=== PATIENT | female | born 1950 | race Asian ===

== ENCOUNTER 2019-01-13 22:36 | Emergency (ER) | payer MEDICARE ==
[~2019-01-13] VITALS: Ht 152.4 cm; Wt 54.4 kg
[2019-01-14] MEDS ORDERED: LIDOCAINE W/ EPINEPHRINE 2% INJ 20ML VIAL ONE (01:37)
[2019-01-14] MEDS ORDERED: HYDROcodone-ACET 10/325MG TAB PO ONE (01:45)
[2019-01-14] MEDS ORDERED: TETANUS-DIPTH-ACEL PERTUSSIS 0.5ML SYRG IM ONE (01:45)
[2019-01-14] MEDS ORDERED: IBUPROFEN 600 MG TAB PO ONE (01:45)
[2019-01-14] MEDS ORDERED: LIDOCAINE 2% (LOCAL ANESTH.) PF 5ml SDV ONE (02:02)
[2019-01-14] MEDS ORDERED: LIDOCAINE 2%HCL (LOCAL ANESTH.) INJ 10ml MDV IJ ONE (02:15)
[2019-01-14] MEDS ORDERED: LIDOCAINE W/ EPINEPHRINE 2% INJ 20ML VIAL IJ ONE (02:15)
[2019-01-14 02:59] VITALS: BP 135/61
== END 2019-01-14 03:01 | disposition home or self-care (01) ==
LOC: ER 22:41
DX: S60.221A Contusion of right hand, initial encounter (principal); Z88.8 Allergy status to other drugs, medicaments and biological substances; W22.8XXA Striking against or struck by other objects, initial encounter; Y93.89 Activity, other specified; Y99.8 Other external cause status; Y92.89 Other specified places as the place of occurrence of the external cause
CPT/HCPCS: 29105; 73130; 90471; 90715; 99283; J2001